=== PATIENT | female | born 1945 | race Caucasian/White ===

== ENCOUNTER 2016-09-20 09:29 | Emergency (ER) | payer OTHER ==
[~2016-09-20] VITALS: Ht 167.6 cm; Wt 99.1 kg
[~2016-09-20 09:29] MED LIST: ASPIR-LOW81 MG PO; CEFTIN500 MG PO; CLONIDINE HCL0.1 MG PO; ERGOCALCIF50000 UNIT PO; GLUCAGON1 MG IM; HYDROCHLOROTHIA25 MG PO; LANTUS 3 M100 UNITS1 SC; LEVOTHYROXINE200 MC1 PO; LOTREL 10/41 CAPSULE PO; MUCINEX600 MG PO; NOVOLOG PE100 UNITS/ SC; OMEGA PO; TYLENOL EXTRA500 MG PO
[2016-09-20 10:15] LABS: BASOPHIL COUNT 0.1 K/uL (0-0.1); EOSINOPHIL (%) 4.5 % (0-5); EOSINOPHIL COUNT 0.4 K/uL (0-0.3); HEMATOCRIT 39.8 % (36.0-46.0); IMMATURE GRANULOCYTE (%) 0.1 % (0.0-0.7); IMMATURE GRANULOCYTE COUNT 0.1 K/uL; LYMPHOCYTE COUNT 1.9 K/uL (1.0-2.8); MCH 27.8 PG (29.0-34.0); MCHC 32.9 G/DL (30.0-36.0); MCV 84.5 FL (83-99); MEAN PLAT.VOLUME 10.6 uM^3 (9.5-12.4); MONOCYTE (%) 6.3 % (3-12); MONOCYTE COUNT 0.6 K/uL (0-0.8); NEUTROPHIL (%) 67.9 % (45-76); NEUTROPHIL COUNT 6.3 K/uL (1.8-6.4); PLATELET COUNT 206 K/uL (156-360); RBC DIS.WIDTH-CV 13.7 % (11.8-14.6); RBC DIS.WIDTH-SD 41.9 % (39-53); RED BLOOD COUNT 4.71 M/uL (3.80-5.20); WHITE BLOOD COUNT 9.3 K/uL (4.1-10.2)
[2016-09-20 10:27] LABS: CHLORIDE 104 mEq/L (99-109); POTASSIUM 4.3 mEq/L (3.7-5.4); SODIUM 141 mEq/L (136-147)
[2016-09-20 10:30] LABS: GLUCOSE 274 mg/dL (70-99)
[2016-09-20 10:31] LABS: ANION GAP 12 MEQ/L (2-14)
[2016-09-20 10:32] LABS: D-DIMER ELISA 0.73 mg/L FEU (< 0.57); TOTAL BILIRUBIN 0.5 mg/dL (0.0-1.0)
[2016-09-20 10:33] LABS: ALKALINE PHOSPHATASE 116 IU/L (3-129); GFR ESTIMATE (CALCULATED) 47 mL/min/
[2016-09-20 10:34] LABS: UREA NITROGEN (BUN) 24 mg/dL (9-23)
[2016-09-20 10:37] LABS: LIPASE 24 U/L (1.0-51.0)
[2016-09-20 10:38] LABS: TROP-I INTERPRETATION NEGATIVE; TROPONIN-I 0.02 ng/mL (0.0-0.30)
[2016-09-20 14:10] LABS: TROP-I INTERPRETATION NEGATIVE; TROPONIN-I < 0.01 ng/mL (0.0-0.30)
[2016-09-20 14:48] VITALS: BP 145/56
== END 2016-09-20 15:42 | disposition home or self-care (01) ==
LOC: EME 09:29
PROVIDERS: Emergency Medicine
DX: R07.9 Chest pain, unspecified (principal); E11.9 Type 2 diabetes mellitus without complications; I10 Essential (primary) hypertension; E03.9 Hypothyroidism, unspecified; Z87.891 Personal history of nicotine dependence; Z79.84 Long term (current) use of oral hypoglycemic drugs; Z79.4 Long term (current) use of insulin; Z79.82 Long term (current) use of aspirin
CPT/HCPCS: 71010; 71275; 80053; 83690; 84484; 85025; 85379; 93005; 99281; 99285; J7040

== ENCOUNTER 2017-02-24 17:21 | Emergency (ER) | payer OTHER ==
[~2017-02-24] VITALS: Ht 167.6 cm; Wt 100.0 kg
[2017-02-24] MEDS ORDERED: PREDNISONE20 MG PO (18:58)
[2017-02-24 19:17] VITALS: BP 136/65
== END 2017-02-24 19:18 | disposition home or self-care (01) ==
LOC: EME 17:21
DX: M54.16 Radiculopathy, lumbar region (principal); I10 Essential (primary) hypertension; E11.9 Type 2 diabetes mellitus without complications; E03.9 Hypothyroidism, unspecified; Z79.82 Long term (current) use of aspirin; Z79.4 Long term (current) use of insulin; Z87.891 Personal history of nicotine dependence
CPT/HCPCS: 99281; 99283; J7512